=== PATIENT | female | born 1975 | race American Indian/Alaskan Native ===

== ENCOUNTER 2016-08-10 14:26 | Emergency (ER) | payer OTHER ==
--- NOTE | 2016-08-10 19:24 | Emergency Department Report ---
ED Lower Extremity HPI - General Chief Complaint: Extremity Injury, Lower Stated Complaint: LT ANKLE INJURY/AND RT SIDE WAIST PAIN Time Seen by Provider: 08/10/16 19:16 Source: patient Mode of arrival: Wheelchair Limitations: No Limitations - History of Present Illness Initial Comments: 41 y/o female slip and fell at work .pt state has she was walking at work and twisted her ankle and fell .pt state the accident happen on yesterday .pt state today swelling worsen and she unable to bear weight without pain. MD Complaint: ankle injury Onset/Timin -: days(s) Injury: Ankle: Left Type of Injury: hyperextension Place: work Severity: moderate Severity scale (0 -10): 6 Improves With: NSAID, cold therapy Worsens With: weight bearing, movement Context: fall Associated Symptoms: swelling Treatments Prior to Arrival: cold therapy - Related Data Previous Rx's Medication Instructions Recorded Last Taken Type Ibuprofen [Motrin] 800 mg PO Q8HR PRN #15 tablet 08/10/16 Unknown Rx Allergies Allergy/AdvReac Type Severity Reaction Status Date / Time broccoli Allergy Itching Verified 08/10/16 14:33 ED Review of Systems ROS: Stated complaint: LT ANKLE INJURY/AND RT SIDE WAIST PAIN Other details as noted in HPI Constitutional: denies: chills, fever Eyes: denies: eye pain, eye discharge, vision change ENT: denies: ear pain, throat pain Respiratory: denies: cough, shortness of breath, wheezing Cardiovascular: denies: chest pain, palpitations Endocrine: no symptoms reported Gastrointestinal: denies: abdominal pain, nausea, diarrhea Genitourinary: denies: urgency, dysuria, discharge Musculoskeletal: joint swelling, arthralgia. denies: back pain Skin: denies: rash, lesions Neurological: denies: headache, weakness, paresthesias Psychiatric: denies: anxiety, depression Hematological/Lymphatic: denies: easy bleeding, easy bruising ED Past Medical Hx - Past Medical History Previous Medical History?: No - Surgical History Past Surgical History?: Yes Additional Surgical History: x 2 - Social History Smoking Status: Never Smoker Substance Use Type: Alcohol, Non Opiate Pain - Medications Home Medications: Home Medications Medication Instructions Recorded Confirmed Last Taken Type Ibuprofen [Motrin] 800 mg PO Q8HR PRN #15 tablet 08/10/16 Unknown Rx ED Physical Exam - General Limitations: No Limitations General appearance: alert, in no apparent distress - Head Head exam: Present: atraumatic, normocephalic - Eye Eye exam: Present: normal appearance - ENT ENT exam: Present: mucous membranes moist - Neck Neck exam: Present: normal inspection - Respiratory Respiratory exam: Present: normal lung sounds bilaterally. Absent: respiratory distress - Cardiovascular Cardiovascular Exam: Present: regular rate, normal rhythm. Absent: systolic murmur, diastolic murmur, rubs, gallop - GI/Abdominal GI/Abdominal exam: Present: soft, normal bowel sounds - Extremities Exam Extremities exam: Present: normal inspection - Expanded Lower Extremity Exam Left Lower Leg exam: Present: tenderness, swelling - Back Exam Back exam: Present: normal inspection - Neurological Exam Neurological exam: Present: alert, oriented X3 - Psychiatric Psychiatric exam: Present: normal affect, normal mood - Skin Skin exam: Present: warm, dry, intact, normal color. Absent: rash ED Course Vital Signs 08/10/16 08/10/16 14:34 19:45 Temperature 98.1 F 98.4 F Pulse Rate 114 H 90 Respiratory 20 18 Rate Blood Pressure 128/81 Blood Pressure 118/83 [Right] O2 Sat by Pulse 100 99 Oximetry ED Lower Extremity MDM - Medical Decision Making left ankle pain x ray show no bony abnormality . pt will have uds for worker comp Critical care attestation.: If time is entered above; I have spent that time in minutes in the direct care of this critically ill patient, excluding procedure time. ED Disposition Clinical Impression: Ankle pain Qualifiers: Laterality: left Chronicity: acute Qualified Code(s): M25.572 - Pain in left ankle and joints of left foot Fall Qualifiers: Encounter type: initial encounter Qualified Code(s): W19.XXXA - Unspecified fall, initial encounter Disposition: DISCHARGED TO HOME OR SELFCARE Is pt being admited?: No Does the pt Need Aspirin: No Condition: Stable Instructions: Arthralgia (ED), RICE Therapy (ED) Prescriptions: Ibuprofen [Motrin] 800 mg PO Q8HR PRN #15 tablet PRN Reason: Pain Referrals: PRIMARY CARE, [Primary Care Provider] - 3-5 Days [facility] [Outside] - 3-5 Days Forms: Work/School Release Form(ED) Time of Disposition: 20:21
[2016-08-10 19:46] VITALS: BP 118/83
--- NOTE | 2016-08-10 19:49 | XRay Report ---
FINAL REPORT EXAM: XR ANKLE 2V LT HISTORY: edema and pain COMPARISON: None available. FINDINGS: Two views of the left ankle obtained. Ankle mortise preserved. No acute fracture dislocation. IMPRESSION: No acute bony abnormality.
[2016-08-10 20:18] LABS: Urine Drugs of Abuse Note Disclamer
== END 2016-08-10 20:50 | disposition home or self-care (01) ==
LOC: ED 14:26
DX: M25.572 Pain in left ankle and joints of left foot (principal); W18.30XA Fall on same level, unspecified, initial encounter; Y93.9 Activity, unspecified; Y92.9 Unspecified place or not applicable; Y99.9 Unspecified external cause status
CPT/HCPCS: 80307